=== PATIENT | female | born 1975 | race Caucasian/White ===

== ENCOUNTER 2021-07-08 17:50 | Emergency (ER) | payer OTHER ==
--- NOTE | 2021-07-08 18:51 | ER ---
Nurse's Notes [facility] Name: Salome Jacobsen Age: 46 yrs Sex: Female : 1975 Arrival Date: 07/08/2021 Time: 17:55 Bed 12 Private MD: Diagnosis: Tinea pedis;UTI/ Urinary tract infection, site not specified Presentation: 07/08 20:26 Chief complaint: [place] and her left bb big toe has a wound and is discolored also she is having dysuria for several weeks. Coronavirus screen: At this time, the client does not indicate any symptoms associated with coronavirus-19. Ebola Screen: No symptoms or risks identified at this time. Initial Sepsis Screen: Does the patient meet any 2 criteria? No. Patient's initial sepsis screen is negative. Does the patient have a suspected source of infection? No. Patient's initial sepsis screen is negative. Risk Assessment: Do you want to hurt yourself or someone else? Patient reports no desire to harm self or others. Onset of symptoms was July 08, 2021. 20:26 Method Of Arrival: Ambulatory 20:26 Acuity: PAU 3 bb Triage Assessment: 20:28 General: Appears in no apparent distress. obese, Behavior is calm, cooperative. Pain: bb Complains of pain in left big toe Pain currently is 8 out of 10 on a pain scale. Neuro: Level of Consciousness is awake, alert, obeys commands, Oriented to person, place, time, situation. Cardiovascular: Capillary refill < 3 seconds Patient's skin is warm and dry. Respiratory: Respiratory effort is even, unlabored. GI: No signs and/or symptoms were reported involving the gastrointestinal system. : Reports inability to void. Derm: Skin is pink, warm \T\ dry. Musculoskeletal: Circulation, motion, and sensation intact. left big toe discolored with wound. 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 Screenin:30 Abuse screen: Denies threats or abuse. Nutritional screening: No deficits noted. bb Tuberculosis screening: No symptoms or risk factors identified. Fall Risk None identified. Assessment: 22:30 Reassessment: No changes from previously documented assessment. Patient is alert, bb oriented x 3, equal unlabored respirations, skin warm/dry/pink. 07/09 02:00 Reassessment: pt not in room for discharge pt had IV removed by tech prior to leaving. bb Vital Signs: 07/08 20:26 BP 181 / 84; Pulse 95; Resp 18 S; Temp 99.3(O); Pulse Ox 100% on R/A; Weight 128.37 kg bb (R); Height 5 ft. 4 in. (162.56 cm) (R); Pain 8/10; 07/09 01:06 BP 154 / 90; Pulse 98; Resp 20 S; Temp 99.6(O); Pulse Ox 96% on R/A; mw2 07/08 20:26 Body Mass Index 48.58 (128.37 kg, 162.56 cm) ED Course: 07/08 17:55 Patient arrived in ED. ds1 18:51 Alice Sparks, RN is Primary Nurse. iw 19:17 Primary Nurse role handed off by Alice Sparks, LUKAS mw2 20:28 Triage completed. bb 20:28 Arm band placed on Patient placed in waiting room, Patient notified of wait time. bb 22:29 Clinton Sanchez MD is Attending Physician. [facility] 22:30 Patient has correct armband on for positive identification. bb 22:30 No provider procedures requiring assistance completed. bb 22:52 Foot Left 3 View XRAY In Process Unspecified. EDMS 23:14 Missed attempt(s): 22 gauge in right antecubital area. lt3 23:15 Initial lab(s) drawn, by hi, sent to lab. Inserted saline lock: 22 gauge in left lt3 antecubital area, using aseptic technique. 23:42 Urine collected: clean catch specimen. lt3 23:57 Kimberley Perez RN is Primary Nurse. 07/09 01:15 IV discontinued, bleeding controlled, No redness/swelling at site. Pressure dressing mw2 applied. 01:38 River Child DPM is Referral Physician. 7 Administered Medications: 00:15 Drug: Rocephin (cefTRIAXone) 1 grams Route: IV; Rate: per protocol; Site: left bb antecubital; 00:25 Follow up: IV Status: Completed infusion; IV Intake: 10ml bb Intake: 00:25 IV: 10ml; Total: 10ml. bb Outcome: 07/08 18:51 Patient left the ED. iw 07/09 01:39 Discharge ordered by MD. dunham 02:01 Discharged to home ambulatory. bb 02:01 Condition: stable 02:02 Patient left the ED. bb Signatures: Dispatcher [employer] [facility] Letty Russ ds1 Kimberley Perez RN RN bb Williams, Irene, RN RN iw Lavern Mullins mw2 Clinton Sanchez MD MD mh7 Tran, Leah 3
[2021-07-08 23:40] LABS: Urine Blood 3+ (Negative); Urine Glucose Negative (Negative); Urine Protein 2+ (Negative)
[2021-07-08 23:41] LABS: Absolute Lymphocytes (CBC) 1.2 K/uL (0.7-4.9); Hematocrit 40.2 % (36.0-45.0); Lymphocytes % 14.5 % (15.3-44.8); MPV 7.9 fL (7.6-11.3); RBC Red Blood Cell Count 5.03 M/uL (3.86-4.86)
[2021-07-08 23:52] LABS: ALT/SGPT 16 U/L (12-78); AST/SGOT 7 U/L (15-37); Albumin 3.1 g/dL (3.4-5.0); Alkaline Phosphatase 96 U/L (45-117); BUN Blood Urea Nitrogen 5 mg/dL (7-18); Bicarbonate 26 mmol/L (21-32); Bilirubin Direct < 0.1 mg/dL (0-0.2); Bilirubin Total 0.3 mg/dL (0.2-1.0); Glucose Level 199 mg/dL (74-106); Potassium 3.5 mmol/L (3.5-5.1); Sodium Level 135 mmol/L (136-145)
--- NOTE | 2021-07-09 01:39 | EDPHYS ---
Physician Documentation [facility] Name: Salome Jacobsen Age: 46 yrs Sex: Female : 1975 Arrival Date: 07/08/2021 Time: 17:55 Bed 12 Private MD: ED Physician Clinton Sanchez HPI: 07/08 22:44 This 46 yrs old Female presents to ER via Ambulatory with complaints of Toe Swelling. mh7 22:44 The patient presents with pain, that is acute. The complaints affect the Left great mh7 toe. Context: The problem was sustained at an unknown location, resulted from an unknown cause, Mechanism of Injury: Unknown the patient can fully bear weight, the patient is able to ambulate, without difficulty. Onset: The symptoms/episode began/occurred 1 month(s) ago. Modifying factors: The symptoms are alleviated by nothing, the symptoms are aggravated by weight bearing. Associated signs and symptoms: Pertinent positives: nausea, swelling, vomiting, Dysuria, Pertinent negatives: calf tenderness, fever, numbness, rash, tingling, warmth, weakness. Severity of symptoms: At their worst the symptoms were moderate, 14 day(s) ago, in the emergency department the symptoms have improved, moderately. 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 ROS: 22:44 Constitutional: Negative for fever, chills, and weight loss, Eyes: Negative for injury, mh7 pain, redness, and discharge, ENT: Negative for injury, pain, and discharge, Neck: Negative for injury, pain, and swelling, Cardiovascular: Negative for chest pain, palpitations, and edema, Respiratory: Negative for shortness of breath, cough, wheezing, and pleuritic chest pain, Back: Negative for injury and pain, Skin: Negative for injury, rash, and discoloration, Neuro: Negative for headache, weakness, numbness, tingling, and seizure, Psych: Negative for depression, anxiety, suicide ideation, homicidal ideation, and hallucinations, Allergy/Immunology: Negative for hives, rash, and allergies, Endocrine: Negative for neck swelling, polydipsia, polyuria, polyphagia, and marked weight changes, Hematologic/Lymphatic: Negative for swollen nodes, abnormal bleeding, and unusual bruising. Exam: 22:44 Constitutional: This is a well developed, well nourished patient who is awake, alert, mh7 and in no acute distress. Head/Face: Normocephalic, atraumatic. Eyes: Pupils equal round and reactive to light, extra-ocular motions intact. Lids and lashes normal. Conjunctiva and sclera are non-icteric and not injected. Cornea within normal limits. Periorbital areas with no swelling, redness, or edema. Neck: Trachea midline, no thyromegaly or masses palpated, and no cervical lymphadenopathy. Supple, full range of motion without nuchal rigidity, or vertebral point tenderness. No Meningismus. Chest/axilla: Normal chest wall appearance and motion. Nontender with no deformity. No lesions are appreciated. Cardiovascular: Regular rate and rhythm with a normal S1 and S2. No gallops, murmurs, or rubs. Normal PMI, no JVD. No pulse deficits. Respiratory: Lungs have equal breath sounds bilaterally, clear to auscultation and percussion. No rales, rhonchi or wheezes noted. No increased work of breathing, no retractions or nasal flaring. Abdomen/GI: Soft, non-tender, with normal bowel sounds. No distension or tympany. No guarding or rebound. No evidence of tenderness throughout. Back: No spinal tenderness. No costovertebral tenderness. Full range of motion. Neuro: Awake and alert, GCS 15, oriented to person, place, time, and situation. Cranial nerves II-XII grossly intact. Motor strength 5/5 in all extremities. Sensory grossly intact. Cerebellar exam normal. Normal gait. Psych: Awake, alert, with orientation to person, place and time. Behavior, mood, and affect are within normal limits. 22:44 Musculoskeletal/extremity: Extremities: noted in the Left great toe: rash, ROM: intact mh7 in all extremities, Circulation is intact in all extremities. Sensation intact. Compartment Syndrome exam of affected extremity: is normal. no numbness, no tingling, no sensation deficit, no palor, no weak pulses, Joints: All joints appear normal with full range of motion. Weight bearing: able to fully bear weight, without difficulty, Tendon exam: specific tendon testing normal through active and passive range of motion Calves: are non-tender, have equal circumference. 22:44 Skin: rash a mild rash is noted, rash can be described as consistent with Tinea pedis, on the Left great toe, Includes webspace of left toe. Vital Signs: 20:26 BP 181 / 84; Pulse 95; Resp 18 S; Temp 99.3(O); Pulse Ox 100% on R/A; Weight 128.37 kg bb (R); Height 5 ft. 4 in. (162.56 cm) (R); Pain 8/10; 07/09 01:06 BP 154 / 90; Pulse 98; Resp 20 S; Temp 99.6(O); Pulse Ox 96% on R/A; mw2 07/08 20:26 Body Mass Index 48.58 (128.37 kg, 162.56 cm) bb MDM: 01:36 Differential diagnosis: fracture, sprain, arthritis, gout, cellulitis. Data reviewed: [facility] vital signs, nurses notes, lab test result(s), CBC, electrolytes, urinalysis, UPT: negative radiologic studies, plain films. Data interpreted: Pulse oximetry: on room air is 96 %. Interpretation: normal. 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 Response to treatment: the patient's symptoms have markedly improved after treatment, patient is well hydrated. 01:39 Patient medically screened. [facility] 07/08 22:43 Order name: CBC with Diff [facility] 07/08 22:43 Order name: Basic Metabolic Panel [facility] 07/08 22:43 Order name: LFT's [facility] 07/08 22:43 Order name: CBC with Automated Diff; Complete Time: 23:51 EDMS 07/08 22:43 Order name: Basic Metabolic Panel; Complete Time: 23:54 EDMS 07/08 22:43 Order name: Liver (Hepatic) Function; Complete Time: 23:54 EDMS 07/08 22:43 Order name: Urine Dipstick-Ancillary (obtain specimen); Complete Time: 23:43 [facility] 07/08 22:43 Order name: Urine Test (obtain specimen); Complete Time: 23:43 [facility] 07/08 22:43 Order name: Foot Left 3 View XRAY [facility] 07/08 23:40 Order name: Urine Dipstick-Ancillary; Complete Time: 23:51 EDNV 07/08 23:49 Order name: Urine --Ancillary (enter results) 2 07/08 23:49 Order name: Urine --Ancillary; Complete Time: 01:00 EDNV 07/08 22:43 Order name: Saline Lock; Complete Time: 23:15 [facility] Administered Medications: 00:15 Drug: Rocephin (cefTRIAXone) 1 grams Route: IV; Rate: per protocol; Site: left bb antecubital; 00:25 Follow up: IV Status: Completed infusion; IV Intake: 10ml bb Disposition Summary: 07/09/21 01:39 Discharge Ordered Location: Home [facility] Problem: an ongoing problem [facility] Symptoms: have improved [facility] Condition: Stable [facility] Diagnosis - Tinea pedis [facility] - UTI/ Urinary tract infection, site not specified [facility] Followup: [facility] - With: Private Physician - When: 1 - 2 days - Reason: Worsening of condition, Recheck today's complaints, Continuance of care, Re-evaluation by your physician Followup: [facility] - With: River Child DPM - When: 2 - 3 days - Reason: Worsening of condition, Recheck today's complaints Discharge Instructions: - Discharge Summary Sheet [facility] - Athlete's Foot, [id number] [facility] - Urinary Tract Infection, Adult, [id number] [facility] Forms: - Medication Reconciliation Form [facility] - Thank You Letter [facility] - Antibiotic Education [facility] - Prescription Opioid Use [facility] Prescriptions: - Clotrimazole 1 % Topical Cream - Apply to affected area 1 application by TOPICAL route every 12 hours; 30 gram; [facility] Refills: 0, Product Selection Permitted - Pyridium 200 mg Oral Tablet - take 1 tablet by ORAL route every 8 hours for 3 days; 9 tablet; Refills: 0, [facility] Product Selection Permitted - Cipro 500 mg Oral Tablet - take 1 tablet by ORAL route every 12 hours for 7 days; 14 tablet; Refills: 0, [facility] Product Selection Permitted Signatures: Dispatcher [facility] Kimberley Mina RN RN Alice Draper RN RN iw Clinton Sanchez MD MD mh7 Corrections: (The following items were deleted from the chart) 07/08 18 18:51 Before Triage [facility] 54 18:51 wait time [facility]
[2021-07-09 02:11] VITALS: BP 154/90; TEMP 99.6; O2SAT 96
--- NOTE | 2021-07-09 20:05 | RAD REPORT ---
EXAM DESCRIPTION: RAD - Foot Left 3 View - 07/08/2021 10:52 pm CLINICAL HISTORY: Great toe;Pain. COMPARISON: None. TECHNIQUE: Three views of the left foot were obtained: AP, oblique, and lateral radiographs. FINDINGS: No acute osseous abnormality. Specifically, the great toe appears intact. Lisfranc joint a lignment is maintained. No radiopaque foreign object is identified. IMPRESSION: No acute osseous abnormality. Electronically signed by: Marly Santiago MD 07/09/2021 12:36 AM LEAD DATABASE DEVELOPER Due to temporary technical issues with the PACS/Fluency reporting system, reports are being signed by the in house radiologists without review as a courtesy to insure prompt reporting. The interpreting radiologist is fully responsible for the content of the report.
== END 2021-07-09 02:02 | disposition home or self-care (01) ==
LOC: ER 17:50
DX: B35.3 Tinea pedis (principal); N39.0 Urinary tract infection, site not specified
CPT/HCPCS: 36415; 80048; 80076; 81003; 81025; 85025; 96374; 99284

== ENCOUNTER 2022-01-09 05:51 | Emergency (ER) | payer OTHER ==
[2022-01-09 06:46] LABS: Absolute Lymphocytes (CBC) 1.4 K/uL (0.7-4.9); Hematocrit 39.7 % (36.0-45.0); Lymphocytes % 14.4 % (15.3-44.8); MCV 78.5 fL (80-100); MPV 7.7 fL (7.6-11.3); RBC Red Blood Cell Count 5.05 M/uL (3.86-4.86)
[2022-01-09] MEDS ORDERED: ONDANSETRON 4 MG/2 ML VIAL ONE (06:46)
[2022-01-09] MEDS ORDERED: MORPHINE 2 MG/ML SYR ONE (06:46)
[2022-01-09 07:06] LABS: Potassium 3.2 mmol/L (3.5-5.1); Troponin High Sensitivity 5.4 pg/mL (<58.9)
--- NOTE | 2022-01-09 07:24 | RAD REPORT ---
EXAM DESCRIPTION: RAD - Chest Single View - 01/09/2022 6:51 am CLINICAL HISTORY: CHEST PAIN COMPARISON: None TECHNIQUE: AP portable chest image was obtained 01/09/2022 6:51 am . FINDINGS: Lung volumes are low. Portable technique and large body habitus further limits the examina tion. No focal consolidation seen. Retrocardiac left base is poorly visualized. Mild edema or viral i nfiltrate can't easily be masked in this setting. Heart size within normal limits for exam limitations. No abnormal vascular engorgement. No measurable pleural effusion and no pneumothorax. No acute bony abnormality seen. No acute aortic findings suspected. IMPRESSION: No acute cardiopulmonary process. Exam limitations could mask early edema or infiltrate. Left lung base is mostly obscured. Follow-up CT chest imaging could be obtained the patient has continued, unexplained symptoms.
[2022-01-09 07:54] LABS: Urine Blood 1+ (Negative); Urine Glucose Negative (Negative); Urine Protein 1+ (Negative); Urine Specific Gravity >=1.030 (1.005-1.030)
--- NOTE | 2022-01-09 07:55 | EKG ---
Test Date: 2022-01-09 Test Time: 05:53:51 Hand Finisher: SHANEKA MEASUREMENT RESULTS: Intervals: Rate: 73 [place]: 144 QRSD: 98 QT: 412 QTc: 453 [place]: P: 50 [place]: 144 QRS: 12 T: 22 INTERPRETIVE STATEMENTS: Normal sinus rhythm Normal ECG No previous ECG available for comparison Electronically Signed On 01-09-22 07:54:55 CDT by Flavio Chatterjee
--- NOTE | 2022-01-09 08:39 | RAD REPORT ---
EXAM DESCRIPTION: CT - Chest Abdomen Pelvis W Cont - 01/09/2022 8:02 am CLINICAL HISTORY: chest pain, abdominal pain, fall COMPARISON: No comparisons TECHNIQUE: Following dynamic enhancement using 100 milliliters nonionic IV contrast, axial imaging o f the chest, abdomen and pelvis was performed. Biphasic technique was utilized through the abdomen. No oral contrast administered. All CT scans are performed using dose optimization technique as appropriate and may include automated exposure control or mA/KV adjustment according to patient size. FINDINGS: Atelectasis and/ or scarring changes present in the lateral gutter on the left. No pulmona ry contusion or acute lung parenchymal process seen. No pleural effusion, pleural thickening or pneum othorax. No significant aortic or pulmonary arterial tree finding. Mediastinal and hilar regions show no mass or abnormal lymphadenopathy. No chest wall mass or axillary lymphadenopathy. There is buckling of the cortex of the anterolateral right fifth and sixth ribs without a clearly def ined fracture line. This could be old injury or an acute incomplete fracture. Correlation is needed w ith any localized symptoms. Additionally, there is a nondisplaced fracture of the lateral left fifth rib. There is buckling of th e anterior cortex of the anterior left sixth and seventh ribs which could potentially be incomplete a cute fractures. There are subtle cortical changes and edema changes in the posterior left fourth -eig hth ribs. Again, incomplete fracture would be possible. This could also be the sequela of remote rib injury. No sternum fracture seen. The liver, spleen and pancreas show no suspicious findings. Gallbladder and biliary tree are unremark able. Gallstones can be occult on CT imaging. Symmetric renal function is seen with no mass or hydro nephrosis. A nonobstructing 3 mm calyx calcifications seen posterior mid left kidney. No adrenal abno rmalities. No dilated bowel loops or focal bowel wall thickening. Appendix is normal. No acute GI process seen. Uterus and ovaries show no suspicious findings. No acute or destructive bony process. Patient has prominent for age degenerative changes in the lower thoracic spine and lower lumbar spine. No significant vascular findings. IMPRESSION: The patient has bilateral rib changes, as detailed above, that could be acute incomplete fractures or sequela of prior rib injury. There is no displaced rib fracture, pneumothorax, pulmonar y contusion or other emergent finding. CT abdomen and pelvis imaging shows no acute or suspicious finding.
--- NOTE | 2022-01-09 08:51 | EDPHYS ---
Physician Documentation [facility] Name: Salome Jacobsen Age: 46 yrs Sex: Female : 1975 Arrival Date: 01/09/2022 Time: 05:56 Bed 19 Private MD: ED Physician Braulio Young HPI: 01/09 06:38 This 46 yrs old Female presents to ER via EMS with complaints of chest pain cindy sp fall. 06:38 The patient or guardian reports chest pain that is located primarily in the anterior cindy chest wall. Onset: The symptoms/episode began/occurred 1 day(s) ago. The pain does not radiate. Associated signs and symptoms: The patient has no apparent associated signs or symptoms. The chest pain is described as sharp. Modifying factors: The symptoms are alleviated by remaining still, the symptoms are aggravated by deep breath, movement. Severity of pain: At its worst the pain was moderate in the emergency department the pain is unchanged. The patient has not experienced similar symptoms in the past. 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 ll3 Historical: - Allergies: 06:07 Byetta; ll3 - Home Meds: 06:23 metformin 1,000 mg Oral tr24 1 tab 2 times per day [Active]; lisinopril 20 mg Oral tab bb 1 tab once daily [Active]; labetalol 100 mg Oral tab 1 tab 2 times per day [Active]; glimepiride 4 mg Oral tab 1 tab twice a day [Active]; aspirin 81 mg Oral chew [Active]; quetiapine 400 mg oral Tb24 2 tabs once daily [Active]; olanzapine 20 mg oral TbDi 1 tab once daily [Active]; sertraline 100 mg oral tab 1 tab once daily [Active]; lamotrigine 150 mg oral tab 1 tab 2 times per day [Active]; pravastatin 40 mg oral tab 1 tab once daily [Active]; amlodipine 10 mg tab 1 tab once daily [Active]; rosuvastatin 40 mg oral cpSP 1 cap once daily [Active]; - PMHx: 06:27 Hypertensive disorder; Hypercholesterolemia; Diabetes mellitus; Schizophrenia; ll3 - Immunization history:: Client reports having NOT received the Covid vaccine. - Social history:: Smoking status: Patient reports the use of cigarette tobacco products, smokes one pack cigarettes per day. - Family history:: not pertinent. ROS: 06:38 Constitutional: Negative for fever, chills, and weight loss, Eyes: Negative for injury, cindy pain, redness, and discharge, ENT: Negative for injury, pain, and discharge, Neck: Negative for injury, pain, and swelling, Respiratory: Negative for shortness of breath, cough, wheezing, and pleuritic chest pain, Abdomen/GI: Negative for abdominal pain, nausea, vomiting, diarrhea, and constipation, Back: Negative for injury and pain, : Negative for injury, bleeding, discharge, and swelling, MS/Extremity: Negative for injury and deformity, Skin: Negative for injury, rash, and discoloration, Neuro: Negative for headache, weakness, numbness, tingling, and seizure, Psych: Negative for depression, anxiety, suicide ideation, homicidal ideation, and hallucinations, Allergy/Immunology: Negative for hives, rash, and allergies, Endocrine: Negative for neck swelling, polydipsia, polyuria, polyphagia, and marked weight changes, Hematologic/Lymphatic: Negative for swollen nodes, abnormal bleeding, and unusual bruising. 06:38 Cardiovascular: Positive for chest pain. Exam: 06:38 Constitutional: This is a well developed, well nourished patient who is awake, alert, cindy and in no acute distress. Head/Face: Normocephalic, atraumatic. Eyes: Pupils equal round and reactive to light, extra-ocular motions intact. Lids and lashes normal. Conjunctiva and sclera are non-icteric and not injected. Cornea within normal limits. Periorbital areas with no swelling, redness, or edema. ENT: Nares patent. No nasal discharge, no septal abnormalities noted. Tympanic membranes are normal and external auditory canals are clear. Oropharynx with no redness, swelling, or masses, exudates, or evidence of obstruction, uvula midline. Mucous membranes moist. Neck: Trachea midline, no thyromegaly or masses palpated, and no cervical lymphadenopathy. Supple, full range of motion without nuchal rigidity, or vertebral point tenderness. No Meningismus. Cardiovascular: Regular rate and rhythm with a normal S1 and S2. No gallops, murmurs, or rubs. Normal PMI, no JVD. No pulse deficits. Respiratory: Lungs have equal breath sounds bilaterally, clear to auscultation and percussion. No rales, rhonchi or wheezes noted. No increased work of breathing, no retractions or nasal flaring. Abdomen/GI: Soft, non-tender, with normal bowel sounds. No distension or tympany. No guarding or rebound. No evidence of tenderness throughout. Back: No spinal tenderness. No costovertebral tenderness. Full range of motion. Skin: Warm, dry with normal turgor. Normal color with no rashes, no lesions, and no evidence of cellulitis. MS/ Extremity: Pulses equal, no cyanosis. Neurovascular intact. Full, normal range of motion. Neuro: Awake and alert, GCS 15, oriented to person, place, time, and situation. Cranial nerves II-XII grossly intact. Motor strength 5/5 in all extremities. Sensory grossly intact. Cerebellar exam normal. Normal gait. Psych: Awake, alert, with orientation to person, place and time. Behavior, mood, and affect are within normal limits. 06:38 Chest/axilla: Inspection: normal, Palpation: tenderness, that is mild, that is moderate, Axilla: are normal, Breasts: are normal, Lymph nodes: lymphadenopathy is not appreciated. 06:38 Cardiovascular: Exam negative for acute changes, arrhythmia, bradycardia, edema, gallop, JVD, murmur, tachycardia. 06:48 ECG was reviewed by the Attending Physician. [facility] Vital Signs: 06:01 BP 171 / 83; Pulse 75; Resp 18; Temp 98.6(O); Pulse Ox 97% on R/A; Weight 136.08 kg ll3 (R); Height 5 ft. 4 in. (162.56 cm) (R); Pain 8/10; 08:23 BP 144 / 67; Pulse 66; Resp 18; Pulse Ox 95% on R/A; jung 06:01 Body Mass Index 51.49 (136.08 kg, 162.56 cm) ll3 MDM: 05:56 Patient medically screened. [facility] 06:47 Differential diagnosis: Blunt Chest Trauma Chest Wall Contusion Chest Wall Injury. Data [facility] reviewed: vital signs, nurses notes, lab test result(s), EKG, radiologic studies, CT scan, plain films. 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 Test interpretation: by ED physician or midlevel provider: ECG, plain radiologic studies. Counseling: I had a detailed discussion with the patient and/or guardian regarding: the historical points, exam findings, and any diagnostic results supporting the discharge/admit diagnosis, lab results, radiology results. ED course: Dr YOUNG TO DISPO , PT STABLE , REPORT GIVEN. 09:02 ED course: Discussed labs, chest x-ray, CTs, physical exam findings with patient. ms3 Patient to follow-up with primary care physician in 2 to 3 days. Patient understands and agrees with plan. All questions were answered. Return precautions discussed include worsening symptoms, or any other concerns. On reevaluation patient is alert and oriented x4, in no apparent distress, nontoxic-appearing, speaking full sentences.. 01/09 06:15 Order name: Basic Metabolic Panel; Complete Time: 07:22 01/09 06:15 Order name: CBC with Diff; Complete Time: 07:22 01/09 06:15 Order name: Troponin HS; Complete Time: 07:22 01/09 06:27 Order name: Lipase; Complete Time: 07:22 [facility] 01/09 06:58 Order name: SARS-COV-2 RT PCR; Complete Time: 08:47 EDCT 01/09 06:15 Order name: XRAY Chest (1 view); Complete Time: 07:38 01/09 06:27 Order name: CT Chest, Abdomen, Pelvis - W/Contrast; Complete Time: 08:47 [facility] 01/09 07:27 Order name: LAB Add On eb 01/09 07:46 Order name: Influenza Screen (A ; Complete Time: 07:48 EDCT 01/09 07:54 Order name: Urine Dipstick-Ancillary; Complete Time: 08:47 EDCT 01/09 07:56 Order name: Urine --Ancillary (enter results) eb 01/09 08:04 Order name: NT PRO-BNP; Complete Time: 08:47 EDCT 01/09 06:15 Order name: EKG; Complete Time: 06:16 bb 01/09 06:15 Order name: Cardiac monitoring; Complete Time: 06:15 01/09 06:15 Order name: EKG - Nurse/Tech; Complete Time: 06:15 01/09 06:15 Order name: IV Saline Lock; Complete Time: 06:25 01/09 06:15 Order name: Labs collected and sent; Complete Time: 06:25 bb 01/09 06:15 Order name: O2 Per Protocol; Complete Time: 06:15 bb 01/09 06:15 Order name: O2 Sat Monitoring; Complete Time: 06:15 bb 01/09 06:27 Order name: Urine Dipstick-Ancillary (obtain specimen); Complete Time: 07:56 cindy EC:48 Rate is 73 beats/min. Rhythm is regular. QRS Rufe is Normal. CO interval is normal. QRS cindy interval is normal. QT interval is normal. No Q waves. T waves are Normal. No ST changes noted. Clinical impression: NSR w/ Non-specific ST/T Changes and No evidence of ischemia. Interpreted by me. Reviewed by me. Administered Medications: 06:42 Drug: Zofran (Ondansetron) 4 mg Route: IVP; Site: right antecubital; ll3 07:20 Follow up: Response: No adverse reaction jung 06:48 Drug: morphine 2 mg Route: IVP; Infused Over: 4 mins; Site: right antecubital; ll3 07:20 Follow up: Response: No adverse reaction jung Disposition Summary: 01/09/22 08:50 Discharge Ordered Location: Home ms3 Condition: Stable ms3 Diagnosis - Multiple fractures of ribs, left side ms3 - Fall on same level, unspecified ms3 - Chest pain on breathing ms3 - Hypokalemia ms3 Followup: ms3 - With: David Pearson DO - When: 2 - 3 days - Reason: Recheck today's complaints, Re-evaluation by your physician Discharge Instructions: - Discharge Summary Sheet ms3 - Fall Prevention in the Home, Adult ms3 - Rib Fracture, [id number] ms3 Forms: - Medication Reconciliation Form ms3 - Work release form eb - Thank You Letter ms3 - Antibiotic Education ms3 - Prescription Opioid Use ms3 Prescriptions: - Ibuprofen 600 mg Oral Tablet - take 1 tablet by ORAL route every 6 hours As needed take with food; 30 tablet; ms3 Refills: 0, Product Selection Permitted Signatures: Dispatcher [employer] EDAguila Camacho MD MD cha Ballard, Brenda RN RN Braulio Gunter DO DO ms3 Vu Nichols RN RN [facility] Au-Stager, Maria Esther RN jung Corrections: (The following items were deleted from the chart) 06:58 06:17 COVID-19/FLU A+[id number] ordered. EDMS EDMS
--- NOTE | 2022-01-09 08:51 | ER ---
Nurse's Notes [facility] Name: Salome Jacobsen Age: 46 yrs Sex: Female : 1975 Arrival Date: 01/09/2022 Time: 05:56 Bed 19 Private MD: Diagnosis: Multiple fractures of ribs, left side;Fall on same level, unspecified;Chest pain on breathing;Hypokalemia Presentation: 01/09 06:01 Chief complaint: EMS states: Toned out for CP and difficulty breathing, pt states she ll3 had a syncopal episode and fell on her chest, "it has been hurting ever since". Coronavirus screen: Vaccine status: Patient reports being unvaccinated. Ebola Screen: No symptoms or risks identified at this time. Initial Sepsis Screen: Does the patient meet any 2 criteria? No. Patient's initial sepsis screen is negative. Does the patient have a suspected source of infection? No. Patient's initial sepsis screen is negative. Risk Assessment: Do you want to hurt yourself or someone else? Patient reports no desire to harm self or others. Onset of symptoms was January 09, 2022. Care prior to arrival: Medication(s) given: ASA, 81 mg, x 4. 06:01 Method Of Arrival: EMS: [facility] 3 06:01 Acuity: PAU 3 ll3 Triage Assessment: 06:07 General: Appears uncomfortable, Behavior is calm, cooperative. Pain: Complains of pain ll3 in chest Pain currently is 8 out of 10 on a pain scale. Pain began 3 hours ago. Is continuous. Neuro: Level of Consciousness is awake, alert, obeys commands, Oriented to person, place, time, situation, Reports a syncopal episode. Cardiovascular: Reports chest pain, syncope, Patient's skin is warm and dry. Rhythm is sinus rhythm. Respiratory: Respiratory effort is even, unlabored, Respiratory pattern is regular, symmetrical. Derm: Skin is pink, warm \\T\\ dry. Musculoskeletal: Circulation, motion, and sensation intact. Reports pain in chest since falling on chest. 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 ll3 Historical: - Allergies: 06:07 Byetta; ll3 - Home Meds: 06:23 metformin 1,000 mg Oral tr24 1 tab 2 times per day [Active]; lisinopril 20 mg Oral tab bb 1 tab once daily [Active]; labetalol 100 mg Oral tab 1 tab 2 times per day [Active]; glimepiride 4 mg Oral tab 1 tab twice a day [Active]; aspirin 81 mg Oral chew [Active]; quetiapine 400 mg oral Tb24 2 tabs once daily [Active]; olanzapine 20 mg oral TbDi 1 tab once daily [Active]; sertraline 100 mg oral tab 1 tab once daily [Active]; lamotrigine 150 mg oral tab 1 tab 2 times per day [Active]; pravastatin 40 mg oral tab 1 tab once daily [Active]; amlodipine 10 mg tab 1 tab once daily [Active]; rosuvastatin 40 mg oral cpSP 1 cap once daily [Active]; - PMHx: 06:27 Hypertensive disorder; Hypercholesterolemia; Diabetes mellitus; Schizophrenia; ll3 - Immunization history:: Client reports having NOT received the Covid vaccine. - Social history:: Smoking status: Patient reports the use of cigarette tobacco products, smokes one pack cigarettes per day. - Family history:: not pertinent. Screenin:10 Abuse screen: Denies threats or abuse. Nutritional screening: No deficits noted. ll3 Tuberculosis screening: No symptoms or risk factors identified. 06:26 Fall Risk Fall in past 12 months (25 points). No secondary diagnosis (0 pts). IV access ll3 (20 points). Ambulatory Aid- None/Bed Rest/Nurse Assist (0 pts). Gait- Impaired (20 pts.). Mental Status- Oriented to own ability (0 pts). Total Hamm Fall Scale indicates High Risk Score (45 or more points). Fall prevention measures have been instituted. Side Rails Up X 2 Placed Close to Nursing Station Frequent Obs/Assessments Occuring As available patient and family educated on Fall Prevention Program and Strategies. Assessment: 06:09 General: See triage. ll3 Vital Signs: 06:01 BP 171 / 83; Pulse 75; Resp 18; Temp 98.6(O); Pulse Ox 97% on R/A; Weight 136.08 kg ll3 (R); Height 5 ft. 4 in. (162.56 cm) (R); Pain 8/10; 08:23 BP 144 / 67; Pulse 66; Resp 18; Pulse Ox 95% on R/A; jung 06:01 Body Mass Index 51.49 (136.08 kg, 162.56 cm) ll3 ED Course: 05:56 Patient arrived in ED. 05:56 Aguila Constantino MD is Attending Physician. cindy 06:01 Vu Nichols, LUKAS is Primary Nurse. ll3 06:07 Triage completed. ll3 06:07 Arm band placed on Patient placed in an exam room, on a stretcher, on pvc monitor, ll3 on pulse oximetry. EKG completed in triage. Results shown to MD. 06:10 Patient has correct armband on for positive identification. Placed in gown. Bed in low ll3 position. Call light in reach. Side rails up X 1. Client placed on continuous cardiac and pulse oximetry monitoring. NIBP monitoring applied. 06:25 Initial lab(s) drawn, by me, sent to lab. Inserted saline lock: 22 gauge in right ll3 antecubital area, using aseptic technique. Blood collected. 06:52 XRAY Chest (1 view) In Process Unspecified. EDMS 07:50 Attending Physician role handed off by Aguila Constantino MD ms3 07:50 Braulio Lacy DO is Attending Physician. ms3 08:03 CT Chest, Abdomen, Pelvis - W/Contrast In Process Unspecified. EDMS 08:49 David Pearson DO is Referral Physician. ms3 10:37 No provider procedures requiring assistance completed. IV discontinued, intact, jung Pressure dressing applied. Administered Medications: 06:42 Drug: Zofran (Ondansetron) 4 mg Route: IVP; Site: right antecubital; ll3 07:20 Follow up: Response: No adverse reaction jung 06:48 Drug: morphine 2 mg Route: IVP; Infused Over: 4 mins; Site: right antecubital; ll3 07:20 Follow up: Response: No adverse reaction jung Medication: 10:37 VIS not applicable for this client. jung Outcome: 08:50 Discharge ordered by . ms3 10:37 Discharged to home via wheelchair. jung 10:37 Condition: good 10:37 Discharge instructions given to patient, Prescriptions given X 1. 10:38 Patient left the ED. jung Signatures: Dispatcher [employer] EDMS Aguila Constantino MD MD cha Ballard, Brenda, RN RN bb Braulio Lacy DO DO ms3 Josiane Hayward Lynsea, RN RN ll3 Maria Esther Ryan, RN RN jung
[2022-01-09 11:17] VITALS: TEMP 98.6
[2022-01-09 11:19] VITALS: BP 144/67; O2SAT 95
== END 2022-01-09 10:38 | disposition home or self-care (01) ==
LOC: ER 05:51
DX: S22.42XA Multiple fractures of ribs, left side, initial encounter for closed fracture (principal); E87.6 Hypokalemia; W18.30XA Fall on same level, unspecified, initial encounter; I10 Essential (primary) hypertension; E11.9 Type 2 diabetes mellitus without complications; F17.210 Nicotine dependence, cigarettes, uncomplicated; F20.9 Schizophrenia, unspecified; Z88.8 Allergy status to other drugs, medicaments and biological substances; Z20.822 Contact with and (suspected) exposure to COVID-19
CPT/HCPCS: 93005; 85025; 80048; 36415; 81025; 81003; 84484; 83690; 83880; 87804 ×2; 71260; 74177; 71045; U0003; Q9967; J2270; J2405; 96374; 96375; 99284